=== PATIENT | female | born 1945 | race Caucasian/White ===

== ENCOUNTER 2016-05-24 20:43 | Inpatient (IN) | payer BC, OTHER ==
[~2016-05-24] VITALS: Ht 175.3 cm; Wt 41.5 kg
[2016-05-24] MEDS ORDERED: SODIUM CHLORIDE 0.9% 1000ML 1,000 ML IV STA ×2 (21:34→21:35)
[2016-05-24] MEDS ORDERED: ONDANSETRON INJ 2 MG/ML 2 ML VIAL IV STA (21:35)
[2016-05-24] MEDS ORDERED: OPTIRAY 320 IV PRN (21:45)
[2016-05-24 22:02] LABS: BASO % 0.1 %; BASO ABS # 0.01 K/uL (0-0.2); COMPLETE YES; EOS % 0.1 %; HEMATOCRIT 48.6 % (37-47); IG% 0.3 %; LYMPH % 11.3 %; MEAN CELL VOLUME 88.4 fL (80-100); MEAN CORPUSCULAR HEMOGLOBIN 30.7 pg (25-34); MEAN CORPUSCULAR HGB CONC 34.8 g/dl (32-36); MEAN PLATELET VOLUME 9.9 fL (7.4-10.4); NEUT % 83.2 %; PLATELET COUNT 224 K/uL (130-400); WHITE BLOOD COUNT 15.08 K/uL (4.8-10.8)
[2016-05-24] MEDS ORDERED: CITA40TA12 PO (22:23)
[2016-05-24] MEDS ORDERED: LORA-741 PO (22:23)
[2016-05-24] MEDS ORDERED: MULT-513 PO (22:24)
[2016-05-24 22:30] LABS: ALT/SGPT 57 U/L (12-78); BLOOD UREA NITROGEN 14 mg/dl (7-18); BUN/CREATININE RATIO 15.4 (10-20); CALCIUM 9.9 mg/dl (8.5-10.1); CARBON DIOXIDE 30 mmol/L (21-32); CHLORIDE 104 mmol/L (98-107); CREATININE 0.92 mg/dl (0.60-1.20); GLUCOSE 126 mg/dl (70-99); POTASSIUM 4.4 mmol/L (3.5-5.1); SODIUM 140 mmol/L (136-145)
[2016-05-24 22:32] LABS: ALKALINE PHOSPHATASE 88 U/L (45-117); AST/SGOT 40 U/L (15-37)
[2016-05-24 22:46] LABS: PROTHROMBIN TIME (PATIENT) 10.5 SECONDS (9.0-12.0)
--- NOTE | 2016-05-24 23:17 | DIAGNOSTIC IMAGING REPORT ---
CT OF THE ABDOMEN AND PELVIS WITH CONTRAST CLINICAL HISTORY: GI bleed. COMPARISON STUDY: None. TECHNIQUE: Following IV administration of 115 mL of Optiray-320, axial images of the abdomen and pelvis were obtained from the lung bases to the proximal femurs. Images were reviewed in the axial, sagittal, and coronal planes. IV contrast was administered without complication. CT DOSE: 239.74 mGy.cm FINDINGS: Visualized portions of the lower chest demonstrate moderate to severe emphysema. Evaluation of the abdomen and pelvis is compromised given a paucity of intra-abdominal fat. No pneumatosis, free air or portal venous gas is present. There is a 2.5 cm right hepatic lobe cyst. Several subcentimeter hepatic lesions are too small to characterize. A 1.7 cm right adrenal nodule is indeterminate. There are calcified granulomas within the spleen. There is a 1.3 cm cyst within the upper pole of the left kidney. Several subcentimeter bilateral renal lesions are too small to characterize. There is no evidence for a bowel obstruction. The appendix is not visualized. The sensitivity for detection of mucosal lesions is significantly diminished given CT technique. There is mild wall thickening of the splenic flexure of the colon as well as possible mild wall thickening of the hepatic flexure. This could be due to underdistention. There is moderate distention of the bladder. There is no lymphadenopathy. There is moderate plaque of the abdominal aorta. The left adrenal gland and pancreas are unremarkable. There is no biliary or pancreatic ductal dilatation. IMPRESSION: 1. Mild wall thickening of portions of the colon, including the splenic flexure. This is probably due to underdistention although a nonspecific colitis could appear similar. Difficult study to interpret due to a paucity of intra-abdominal fat. 2. Significantly decreased sensitivity for the detection of mucosal lesions given CT technique. No bowel obstruction. 3. Indeterminate 1.7 cm right adrenal nodule. 4. Moderate to severe emphysema. Electronically signed by: Frank Walton M.D. 05/24/2016 11:16 PM Dictated Date/Time: 05/24/2016 11:05 PM
--- NOTE | 2016-05-24 23:47 | History and Physical ---
History & Physical Date & Time of Service: May 24, 2016 at 23:47 Chief Complaint: Passing Blood Primary Care Physician: Tyrone Roque M.D. History of Present Illness Source: patient, family This is a 71 y/o F who presents with a 1 day history of diarrhea and BRBPR. She has associated lower abdominal cramps but denies pain with defecation. She says that it started off as loose stools with blood but is currently having bowel movements with just blood about a table spoon each time. This has never happened before. She has no GI history. Does not recall eating any unusual foods/uncooked meats. Denies lightheadedness/dizziness. Denies nausea, vomiting, fevers but does admit to some chills. Denies history of hemorrhoids or diverticulitis. Her son has Ulcerative colitis (had colectomy). No family history of colon cancer No recent travel. Denies recent antibiotic use She has never had a colonoscopy before. In general, she does not follow with a doctor regularly and does not keep up with her health maintenance recommendations. She smokes a 1 ppd for 50 years. Denies alcohol use She also reports that she gets extremely short of breath with minimal activity. This has never been evaluated. She does not use inhalers. Past Medical/Surgical History Surgical Problems: (1) Previous section Status: Resolved Family History Diabetes mellitus FH: cancer Hypertension Social History Smoking Status: Current Every Day Smoker Alcohol Use: none Drug Use: none Marital Status: Housing status: lives with family Occupational Status: retired Allergies Coded Allergies: Sulfa Antibiotics (Verified Allergy, Mild, ITCHING, 05/24/16) Home Medications Scheduled Citalopram Hydrobromide (Celexa), 40 MG PO DAILY Lorazepam (Ativan), 0.5 MG PO HS Multivitamins/Minerals (Mvi With Minerals), 1 TAB PO DAILY Pantoprazole (Protonix), 40 MG PO BID Review of Systems Constitutional: + chills, No fatigue, No fever, No sweats, No weakness, No weight loss Respiratory: + dyspnea at rest, + dyspnea on exertion Cardiovascular: No chest pain Abdomen: + diarrhea, + pain, No nausea, No vomiting Genitourinary - Female: No dysuria, No urinary frequency, No urinary incontinence, No urinary urgency Physical Exam Vital Signs Date Time Temp Pulse Resp B/P Pulse Ox O2 Delivery O2 Flow Rate FiO2 05/24/16 21:53 90 05/24/16 21:50 Room Air 05/24/16 21:02 36.7 117 20 160/90 91 Room Air General Appearance: no apparent distress Head: normocephalic, atraumatic Eyes: PERRL, EOMI ENT: hearing grossly normal Neck: supple, no adenopathy, no JVD Respiratory/Chest: no respiratory distress, no accessory muscle use, + decreased breath sounds, + rhonchi, + wheezing Cardiovascular: regular rate, rhythm, no edema Abdomen/GI: normal bowel sounds, non tender, soft Back: no CVA tenderness Extremities/Musculoskelatal: no calf tenderness, normal capillary refill, + pedal edema (trace) Neurologic/Psych: 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, no motor/sensory deficits, alert, normal mood/affect, oriented x 3 Diagnostics Laboratory Results Results Past 24 Hours Test 05/24/16 21:51 05/24/16 22:30 Range/Units White Blood Count 15.08 4.8-10.8 K/uL Red Blood Count 5.50 4.2-5.4 M/uL Hemoglobin 16.9 12.0-16.0 g/dL Hematocrit 48.6 37-47 % Mean Corpuscular Volume 88.4 80-100 fL Mean Corpuscular Hemoglobin 30.7 25-34 pg Mean Corpuscular Hemoglobin Concent 34.8 32-36 g/dl Platelet Count 224 130-400 K/uL Mean Platelet Volume 9.9 7.4-10.4 fL Neutrophils (%) (Auto) 83.2 % Lymphocytes (%) (Auto) 11.3 % Monocytes (%) (Auto) 5.0 % Eosinophils (%) (Auto) 0.1 % Basophils (%) (Auto) 0.1 % Neutrophils # (Auto) 12.54 1.4-6.5 K/uL Lymphocytes # (Auto) 1.70 1.2-3.4 K/uL Monocytes # (Auto) 0.76 0.11-0.59 K/uL Eosinophils # (Auto) 0.02 0-0.5 K/uL Basophils # (Auto) 0.01 0-0.2 K/uL RDW Standard Deviation 40.1 36.4-46.3 fL RDW Coefficient of Variation 12.6 11.5-14.5 % Immature Granulocyte % (Auto) 0.3 % Immature Granulocyte # (Auto) 0.05 0.00-0.02 K/uL Sodium Level 140 136-145 mmol/L Potassium Level 4.4 3.5-5.1 mmol/L Chloride Level 104 98-107 mmol/L Carbon Dioxide Level 30 21-32 mmol/L Anion Gap 6.0 3-11 mmol/L Blood Urea Nitrogen 14 7-18 mg/dl Creatinine 0.92 0.60-1.20 mg/dl Est Creatinine Clear Calc Drug Dose 36.2 ml/min Estimated GFR () 72.1 Estimated GFR (Non- 62.2 BUN/Creatinine Ratio 15.4 10-20 Random Glucose 126 70-99 mg/dl Calcium Level 9.9 8.5-10.1 mg/dl Total Bilirubin 0.4 0.2-1 mg/dl Direct Bilirubin < 0.1 0-0.2 mg/dl Aspartate Amino Transf (AST/SGOT) 40 15-37 U/L Alanine Aminotransferase (ALT/SGPT) 57 12-78 U/L Alkaline Phosphatase 88 45-117 U/L Total Protein 7.2 6.4-8.2 gm/dl Albumin 3.9 3.4-5.0 gm/dl Lipase 80 73-393 U/L Prothrombin Time 10.5 9.0-12.0 SECONDS Prothromb Time International Ratio 1.0 0.9-1.1 Activated Partial Thromboplast Time 26.9 21.0-31.0 SECONDS Partial Thromboplastin Ratio 1.0 Impression Assessment and Plan This is a 71 y/o F with new onset diarrhea and BRBPR. Hematochezia (hemorrhoids vs. bleeding diverticula vs. gastroenteritis vs. IBD vs. malignancy etc) - Patient ultimately needs a colonoscopy - Will consult GI - recommend doing this in the hospital as patient is not likely to follow up outpatient - stool cultures/cdiff. pending. - NPO after midnight - CT abdomen with following incidental findings: 2.5 cm Right hepatic Cyst 1.7 cm right adrenal nodule 1.3 cm left kidny cyst Non sepcific colitis severe emphysema - Does have some leucocytosis- need to rule out E.Coli 157 prior to doing any antibiotics to avoid risk of HUS - trend H/H Long standing Shortness of breath/ Undiagnosed Emphysema Noted On CT but every obvious given her history will trial Duonebs to see if she has any symptomatic relief Upon discharge will need PFT's and inhalers to use at home. Also may benefit from a cardiac Workup-/ stress test- Could be done outpatient since this is not patients presenting complaint, however, given patient's non- compliance, may benefit from in hospital EKG Incidental finding of right adrenal nodule and other cysts - Concern about adrenal adenoma - wanted to do an MRI but patient is claustrophic- could do outpatient open MRI Depression/Anxiety: Celexa, Ativan DVT proph SCDS hold chemical prophylaxis Code: Patient is somewhat uncertain but DOES NOT WANT CPR OR CARDIOVERSION. But is okay to have Mechanical ventilation if respiratory distress. 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 VTE Prophylaxis Given or contraindicated: Other Anticoagulation, SCD's Assessment and Plan Attending Addendum: I have physically seen and examined this patient, have directed their medical care, have supervised the medical residents activities, and agree with the H&P as noted above, with the following changes: The patient is awake, well-developed and adequately nourished, alert and oriented 3, normocephalic and atraumatic, lying in bed and in no acute distress. HEENT--PERRL, EOMI, mucous membranes and oropharynx dry. Neck--supple, no JVD or bruits, thyroid normal, trachea midline, no adenopathy. Heart--normal S1 and S2, no extra beats, no murmurs, rubs or gallops. Lungs--rhonchi and wheezes bilaterally with decreased breath sounds throughout, no respiratory distress, no accessory muscle use. Abdomen--normal bowel sounds and soft, nontender and nondistended, no hernias or masses, no organomegaly. Extremities--no cyanosis, clubbing. Trace bilateral pedal Edema. There are good distal pulses b/l. Dermatologic--normal skin turgor, normal color, warm and dry, no abnormal lymph nodes, no rash. Neurologic--cranial nerves II through XII grossly intact, motor and sensory examination normal. Rheumatologic--normal range of motion, nontender, muscles and joints. Psychiatric--normal affect. Next Assessment and Plan: Hematochezia/nonspecific colitis--the patient be admitted to the medical floor for further assessment. We'll keep nothing by mouth after midnight and place on IV fluids. Consult gastroenterology for possible colonoscopy. No antibiotics until GI studies return. Stool culture, O&P and C. difficile studies pending. Pulmonary/history of shortness of breath/emphysema on imaging studies--we'll do a trial duonebs while in hospital and then use some inhalers at home. 1.7 cm right adrenal nodule--we'll need additional studies. Patient unable to tolerate closed MRI unit. Would look in to getting an MRI in the outpatient setting. Needs follow-up performed. Renal cysts--likely benign, but can be followed up with ultrasound in 6 months. Anxiety/depression--continue Celexa and Ativan.
--- NOTE | 2016-05-24 23:54 | EMERGENCY ROOM VISIT NOTE ---
History Report prepared by Victor M: Noel Bhardwaj Under the Supervision of: Dr. Kalin Gonzalez D.O. First contact with patient: 21:25 Chief Complaint: RECTAL BLEEDING Stated Complaint: PASSING BLOOD Nursing Triage Summary: Pt complains of abdominal pain, diarrhea and bloody stools. It started at 8pm. History of Present Illness The patient is a 71 year old female who presents to the Emergency Room with complaints of acute rectal bleeding that started at 1600 today. The patient notes bright-red blood. She was having diarrhea all day today and lost count of the episodes. She also notes cramping abdominal pain today that is relieved after diarrhea. The patient has not had any recent colonoscopies. She denies any recent travel out of the country, unusual foods, or sick contacts. The patient is not on any blood thinners. Patient denies headache, change in vision , new dizziness or lightheadedness, fevers, chest pain, shortness of breath, nausea, vomiting, pain with urination, and melena. Source of History: patient Onset: 1600 today Position: other (rectal) Quality: other (bright red blood) Timing: other (acute) Associated Symptoms: + abdominal pain, + diarrhea, No SOB, No chest pain, No fevers, No headache, No melena, No nausea, No urinary symptoms, No vomiting Review of Systems See HPI for pertinent positives & negatives. A total of 10 systems reviewed and were otherwise negative. Past Medical & Surgical Surgical Problems: (1) Previous section Family History Diabetes mellitus FH: cancer Hypertension Social History Smoking Status: Current Every Day Smoker Marital Status: Housing Status: lives with family Current/Historical Medications Scheduled Citalopram Hydrobromide (Celexa), 40 MG PO DAILY Lorazepam (Ativan), 0.5 MG PO HS Multivitamins/Minerals (Mvi With Minerals), 1 TAB PO DAILY Allergies Coded Allergies: Sulfa Antibiotics (Verified Allergy, Mild, ITCHING, 05/24/16) Physical Exam Vital Signs Date Time Temp Pulse Resp B/P Pulse Ox O2 Delivery O2 Flow Rate FiO2 05/24/16 21:53 90 05/24/16 21:50 Room Air 05/24/16 21:02 36.7 117 20 160/90 91 Room Air Physical Exam GENERAL: Chronically ill appearing, cachectic, no acute distress. EYE EXAM: normal conjunctiva. OROPHARYNX: no exudate, no erythema, lips, buccal mucosa, and tongue normal and mucous membranes are moist NECK: supple, no nuchal rigidity, no adenopathy, non-tender LUNGS: Clear to auscultation. Normal chest wall mechanics HEART: no murmurs, S1 normal and S2 normal ABDOMEN: abdomen soft, non-tender, normo-active bowel sounds, no masses, no rebound or guarding. BACK: Back is symmetrical on inspection and there is no deformity, no midline tenderness, no CVA tenderness. SKIN: no rashes and no bruising UPPER EXTREMITIES: upper extremities are grossly normal. LOWER EXTREMITIES: No pitting edema. NEURO EXAM: Normal sensorium, cranial nerves II-XII grossly intact, normal speech, no gross weakness of arms, no gross weakness of legs. Gross sensation intact. RECTAL: No stool, scant heme positive. Medical Decision & Procedures ER Provider Diagnostic Interpretation: CT:Per my review, radiologist interpretation. CT OF THE ABDOMEN AND PELVIS WITH CONTRAST CLINICAL HISTORY: GI bleed. COMPARISON STUDY: None. TECHNIQUE: Following IV administration of 115 mL of Optiray-320, axial images of the abdomen and pelvis were obtained from the lung bases to the proximal femurs. Images were reviewed in the axial, sagittal, and coronal planes. IV contrast was administered without complication. CT DOSE: 239.74 mGy.cm FINDINGS: Visualized portions of the lower chest demonstrate moderate to severe emphysema. Evaluation of the abdomen and pelvis is compromised given a paucity of intra-abdominal fat. No pneumatosis, free air or portal venous gas is present. There is a 2.5 cm right hepatic lobe cyst. Several subcentimeter hepatic lesions are too small to characterize. A 1.7 cm right adrenal nodule is indeterminate. There are calcified granulomas within the spleen. There is a 1.3 cm cyst within the upper pole of the left kidney. Several subcentimeter bilateral renal lesions are too small to characterize. There is no evidence for a bowel obstruction. The appendix is not visualized. The sensitivity for detection of mucosal lesions is significantly diminished given CT technique. There is mild wall thickening of the splenic flexure of the colon as well as possible mild wall thickening of the hepatic flexure. This could be due to underdistention. There is moderate distention of the bladder. There is no lymphadenopathy. There is moderate plaque of the abdominal aorta. The left adrenal gland and pancreas are unremarkable. There is no biliary or pancreatic ductal dilatation. IMPRESSION: 1. Mild wall thickening of portions of the colon, including the splenic flexure. This is probably due to underdistention although a nonspecific colitis could appear similar. Difficult study to interpret due to a paucity of intra-abdominal fat. 2. Significantly decreased sensitivity for the detection of mucosal lesions given CT technique. No bowel obstruction. 3. Indeterminate 1.7 cm right adrenal nodule. 4. Moderate to severe emphysema. Electronically signed by: Frank Walton M.D. 05/24/2016 11:16 PM Dictated Date/Time: 05/24/2016 11:05 PM Laboratory Results 05/24/16 21:51 Red Blood Count 5.50, Mean Corpuscular Volume 88.4, Mean Corpuscular Hemoglobin 30.7, Mean Corpuscular Hemoglobin Concent 34.8, Mean Platelet Volume 9.9, Neutrophils (%) (Auto) 83.2, Lymphocytes (%) (Auto) 11.3, Monocytes (%) (Auto) 5.0, Eosinophils (%) (Auto) 0.1, Basophils (%) (Auto) 0.1, Neutrophils # (Auto) 12.54, Lymphocytes # (Auto) 1.70, Monocytes # (Auto) 0.76, Eosinophils # (Auto) 0.02, Basophils # (Auto) 0.01 05/24/16 21:51 Test 05/24/16 21:51 05/24/16 22:30 White Blood Count 15.08 K/uL (4.8-10.8) Red Blood Count 5.50 M/uL (4.2-5.4) Hemoglobin 16.9 g/dL (12.0-16.0) Hematocrit 48.6 % (37-47) Mean Corpuscular Volume 88.4 fL (80-100) Mean Corpuscular Hemoglobin 30.7 pg (25-34) Mean Corpuscular Hemoglobin Concent 34.8 g/dl (32-36) Platelet Count 224 K/uL (130-400) Mean Platelet Volume 9.9 fL (7.4-10.4) Neutrophils (%) (Auto) 83.2 % Lymphocytes (%) (Auto) 11.3 % Monocytes (%) (Auto) 5.0 % Eosinophils (%) (Auto) 0.1 % Basophils (%) (Auto) 0.1 % Neutrophils # (Auto) 12.54 K/uL (1.4-6.5) Lymphocytes # (Auto) 1.70 K/uL (1.2-3.4) Monocytes # (Auto) 0.76 K/uL (0.11-0.59) Eosinophils # (Auto) 0.02 K/uL (0-0.5) Basophils # (Auto) 0.01 K/uL (0-0.2) RDW Standard Deviation 40.1 fL (36.4-46.3) RDW Coefficient of Variation 12.6 % (11.5-14.5) Immature Granulocyte % (Auto) 0.3 % Immature Granulocyte # (Auto) 0.05 K/uL (0.00-0.02) Anion Gap 6.0 mmol/L (3-11) Est Creatinine Clear Calc Drug Dose 36.2 ml/min Estimated GFR () 72.1 Estimated GFR (Non- 62.2 BUN/Creatinine Ratio 15.4 (10-20) Calcium Level 9.9 mg/dl (8.5-10.1) Total Bilirubin 0.4 mg/dl (0.2-1) Direct Bilirubin < 0.1 mg/dl (0-0.2) Aspartate Amino Transf (AST/SGOT) 40 U/L (15-37) Alanine Aminotransferase (ALT/SGPT) 57 U/L (12-78) Alkaline Phosphatase 88 U/L (45-117) Total Protein 7.2 gm/dl (6.4-8.2) Albumin 3.9 gm/dl (3.4-5.0) Lipase 80 U/L (73-393) Prothrombin Time 10.5 SECONDS (9.0-12.0) Prothromb Time International Ratio 1.0 (0.9-1.1) Activated Partial Thromboplast Time 26.9 SECONDS (21.0-31.0) Partial Thromboplastin Ratio 1.0 Laboratory results per my review. Medications Administered Medications (Trade) Dose Ordered Sig/Anjel Route Start Time Stop Time Status Last Admin Dose Admin Sodium Chloride 1,000 ml @ 999 mls/hr Q1H1M STAT IV 05/24/16 21:34 05/24/16 22:34 DC 05/24/16 21:34 999 MLS/HR Sodium Chloride (Nss 1000ml) 1,000 ml @ 999 mls/hr Q1H1M STAT IV 05/24/16 21:35 05/24/16 22:35 DC 05/24/16 21:35 999 MLS/HR Ondansetron HCl (Zofran Inj) 4 mg NOW STAT IV 05/24/16 21:35 05/24/16 21:36 DC 05/24/16 21:35 4 MG ECG Indication: weakness Rate (beats per minute): 89 Rhythm: sinus rhythm Findings: no ectopy, other (rightward axis) ED Course ED COURSE: Vital signs were reviewed and showed tachycardia and hypertension. The patients medical record was reviewed The above diagnostic studies were performed and reviewed. ED treatments and interventions as stated above. 8: The patient was evaluated in room A12a. A complete history and physical examination was performed. 2134: NSS 1000 ml @ 999 mls/hr. 2135: Zofran 4 mg IV, NSS 1000 ml @ 999 mls/hr. 2310: Discussed the case with Dr. Machado, [facility]. The patient will be evaluated. 2315: Upon reevaluation, the patient is doing well.I discussed my findings with the patient and she understands and agrees with the treatment plan. Based on the patients age, coexisting illnesses, exam and lab findings the decision to treat as an inpatient was made. The patient remained stable while under my care. The patient will be evaluated for further management. Medical Decision Differential diagnosis includes etiologies such as diverticulosis, AVM, coagulopathy, colitis, inflammatory bowel disease, malignancy, Rita-Larson tear, esophagitis, peptic ulcer disease, variceal bleed, gastritis, epistaxis, fissure, hemorrhoids, as well as others were entertained. Patient is a 69-year-old female who presents the ER for persistent diarrhea today. She notes that at 4 PM she has been having persistent blood per rectum without stool. Denies any dark tarry stools. No previous colonoscopies. Labs are remarkable for a leukocytosis 15,000. She has no belly pain with exception of mild cramping prior to diarrhea. Hemoglobin is 16. BMP is unremarkable. BUN does not suggest an upper GI bleed. Direct bili along with LFTs and lipase is unremarkable. INR was unremarkable. No blood thinners. CT of her abdomen pelvis shows no obvious acute pathology. She rested comfortably in the ER. She was given fluids and was admitted to internal medicine with a GI bleed. Rectal with scant heme positive but nursing notes that she did have a large bowel movement of blood. Consults Time Called: [id number] Consulting Physician: Dr. Machado, [facility] Hospitalist Returned Call: [phone]: Discussed the case with Dr. Machado, [facility]. The patient will be evaluated. Impression Primary Impression: GI bleed Scribe Attestation The scribe's documentation has been prepared under my direction and personally reviewed by me in its entirety. I confirm that the note above accurately reflects all work, treatment, procedures, and medical decision making performed by me. Departure Information Dispostion Being Evaluated By Hospitalist Patient Instructions My [facility] Health Problem Qualifiers Primary Impression: GI bleed GI bleed type/associated pathology: unspecified gastrointestinal hemorrhage type Qualified Codes: K92.2 - Gastrointestinal hemorrhage, unspecified
[2016-05-25] VITALS (8 sets, daily range): BP systolic 132–154; BP diastolic 68–81; PULSE 83–91; TEMP 36.7; O2SAT 89–91; Ht 175.3 cm; Wt 41.5 kg
[2016-05-25] MEDS ORDERED: ACETAMINOPHEN 325 MG TAB PO PRN (00:30)
[2016-05-25] MEDS ORDERED: MAGNESIUM HYDROXIDE SUSP 30 ML UDC PO PRN (00:30)
[2016-05-25] MEDS ORDERED: ONDANSETRON INJ 2 MG/ML 2 ML VIAL IV PRN (00:30)
[2016-05-25] MEDS ORDERED: ALUMINUM/MAGNESIUM/SIMETH (MAALOX MAX) 30 ML UDC PO PRN (00:30)
[2016-05-25] MEDS ORDERED: POLYETHYLENE (MIRALAX) 17 GM PACK PO PRN (00:30)
[2016-05-25 05:39] LABS: URINE APPEARANCE CLEAR (CLEAR); URINE BILIRUBIN NEG (NEG); URINE COLOR YELLOW; URINE NITRITE NEG (NEG); URINE PH 7.5 (4.5-7.5); URINE SPECIFIC GRAVITY 1.009 (1.000-1.030); UROBILINOGEN NEG (NEG)
[2016-05-25 06:08] LABS: MANUAL MICROSCOPIC REQUIRED? NO; REVIEW REQ? NO
[2016-05-25 06:52] LABS: HEMATOCRIT 43.3 % (37-47)
[2016-05-25] MEDS: ALBUT/IPRATROP 3MG/0.5MG NEB 3 ML VIAL INH SCH ×2 (07:37→11:34)
[2016-05-25] MEDS ORDERED: CITALOPRAM 40 MG TAB PO SCH (09:00)
[2016-05-25 10:41] LABS: HEMATOCRIT 43.4 % (37-47)
[2016-05-25] MEDS ORDERED: NURSING VERBAL MED ORDER ONE (12:30)
[2016-05-25] MEDS ORDERED: NICOTINE 21 MG/24 HR TDSY EXT SCH (13:00)
[2016-05-25] MEDS ORDERED: PANT40TA PO (13:01)
--- NOTE | 2016-05-25 13:03 | Discharge Instructions ---
Discharge Instructions Date of Service May 25, 2016. Admission Reason for Admission: Gi Bleed Discharge Discharge Diagnosis / Problem: lower gi bleed Discharge Goals Goal(s): Decrease discomfort, Improve function, Increase independence, Improve disease control, Learn about illness, Diagnostic testing, Prevent Disease Progression Activity Recommendations Activity Limitations: resume your previous activity Driving or Machine Use: no limitations . Instructions / Follow-Up Instructions / Follow-Up Patient to be discharged home Please take new medications protonix twice a day Will set up appointment with Dr Siddiqi for colonoscopy as outpatient, patient agreeable If worsening abdominal pain, fevers, chills, blood in stools please report to ER Current Hospital Diet Patient's current hospital diet: Clear Liquid Diet Discharge Diet Recommended Diet: Regular Diet Pending Studies Studies pending at discharge: no Medical Emergencies . Who to Call and When: Medical Emergencies: If at any time you feel your situation is an emergency, please call 911 immediately. . Non-Emergent Contact Non-Emergency issues call your: Primary Care Provider Call Non-Emergent contact if: you have a fever, your pain is worsening . . "Provider Documentation" section prepared by Alfred Mejia. VTE Core Measure Inpt VTE Proph given/why not?: Other Anticoagulation, SCD's
--- NOTE | 2016-05-25 13:42 | GASTROINTESTINAL CONSULTATION ---
DATE OF CONSULTATION: 05/25/2016 REASON FOR EVALUATION: Rectal bleeding. HISTORY OF PRESENT ILLNESS: The patient is a 71-year-old female Lita, who presented to the hospital with rectal bleeding. The patient states that yesterday, she had several episodes of diarrhea followed by 5 episodes of bright red blood per rectum. This began around 04:00 yesterday afternoon and went to about 10:00 last night. She has had no further bleeding since then. With each episode, she had passed about a tablespoon of bright red blood. She did have some crampy abdominal pain when she was having diarrhea, but when she was passing the blood, she did not have any abdominal pain or perianal pain. She denies any fever. No nausea or vomiting. She has had no prior episodes of rectal bleeding. The patient denies ever having had a colonoscopy. PAST MEDICAL HISTORY: Remarkable for emphysema from cigarette smoking. She had a . She has depression. MEDICATIONS: Multiple vitamin, Ativan and Celexa. ALLERGIES: SULFA. FAMILY HISTORY: Positive for cancer, diabetes, and hypertension. SOCIAL HISTORY: The patient is . She lives at home. She is retired. She smokes daily for many years. REVIEW OF SYSTEMS: Positive for some dyspnea at rest and weakness. LABORATORY DATA: Shows a white count of 15, hemoglobin 16.9, and platelets 224. Liver profile, renal profile, amylase and lipase normal. PHYSICAL EXAMINATION: GENERAL: The patient is thin, in no acute distress. VITAL SIGNS: Show blood pressure 160/90 and pulse 90. ABDOMEN: Shows low midline scar. Bowel sounds are normal. There is no masses, tenderness, or hepatosplenomegaly. LUNGS: Exam shows decreased breath sounds. IMPRESSION: The patient has rectal bleeding with small amounts of bright red blood following an episode of diarrhea. Stool for C. diff so far is negative. Bacterial pathogens are pending. I also ordered a fecal leukocyte test. I recommend that the patient undergo colonoscopy. I strongly encouraged the patient to stay in the hospital over the weekend, so we can prep her to do a colonoscopy on Saturday. I suspect that the patient may just have some internal hemorrhoids, which were exacerbated by a bout of diarrhea, which may have been viral or bacterial in etiology. Regardless, she needs a colonoscopy. The patient is somewhat reluctant to stay in the hospital, but I tried to convince her that it was in her best interest. Hopefully, she will stay and get prepped and we can proceed with colonoscopy on Saturday.
--- NOTE | 2016-05-25 14:11 | Discharge Summary ---
Discharge Summary Date of Service May 25, 2016. Discharge Summary Admission Date: May 25, 2016 at 00:31 Discharge Date: May 25, 2016 Discharge Disposition: Home Principal Diagnosis: GI bleed Consultations: GI Medication Reconciliation New Medications: Pantoprazole (Protonix) 40 Mg Tab 40 MG PO BID, #30 TAB Continued Medications: Citalopram Hydrobromide (Celexa) 40 Mg Tab 40 MG PO DAILY, TAB Lorazepam (Ativan) 0.5 Mg Tab 0.5 MG PO HS, TAB Multivitamins/Minerals (Mvi With Minerals) Tab 1 TAB PO DAILY, TAB Discharge Exam Review of Systems: Constitutional: No chills, No fever Respiratory: No cough, No dyspnea on exertion, No shortness of breath, No sputum Cardiovascular: No chest pain, No orthopnea Abdomen: No GI bleeding, No diarrhea, No nausea, No pain, No vomiting Musculoskeletal: No joint pain, No muscle pain Genitourinary - Female: No dysuria, No urinary frequency, No urinary urgency Neurologic: No numbness/tingling, No paralysis, No weakness Physical Exam: General Appearance: WD/WN, no apparent distress Neck: supple, no adenopathy Respiratory/Chest: lungs clear, normal breath sounds Cardiovascular: no edema, no gallop Abdomen / GI: non tender, soft Neurologic/Psychiatric: alert, oriented x 3 Hospital Course This is a 71 y/o F with new onset diarrhea and BRBPR. Hematochezia (hemorrhoids vs. bleeding diverticula vs. gastroenteritis vs. IBD vs. malignancy etc) - Patient ultimately needs a colonoscopy however pt refused to do as inpt, hg remained stable and no further bleeding noted during hospitalization - GI consulted however colonoscopy deferred as stated above - stool cultures pending, cdiff. neg - CT abdomen with following incidental findings: 2.5 cm Right hepatic Cyst 1.7 cm right adrenal nodule 1.3 cm left kidny cyst Non sepcific colitis severe emphysema - Does have some leucocytosis- need to rule out E.Coli 157 prior to doing any antibiotics to avoid risk of HUS Long standing Shortness of breath/ Undiagnosed Emphysema -Noted On CT -Trial Duonebs to see if she has any symptomatic relief -Upon discharge will need PFT's and inhalers to use at home. -Also may benefit from a cardiac Workup-/ stress test- Could be done outpatient since this is not patients presenting complaint, however, given patient's non- compliance, may benefit from in hospital Incidental finding of right adrenal nodule and other cysts - Concern about adrenal adenoma - Wanted to do an MRI but patient is claustrophic- could do outpatient open MRI Depression/Anxiety: - Rodriguez Jaramillo DVT proph - SCDS Pt is FULL CODE Total Time Spent: Greater than 30 minutes This includes examination of the patient, discharge planning, medication reconciliation, and communication with other providers. Discharge Instructions Please refer to the electronic Patient Visit Report (Discharge Instructions) for additional information. Additional Copies To Tyrone Roque M.D.
[2016-05-25] MEDS ORDERED: LORAZEPAM 0.5 MG TAB PO SCH (21:00)
[2016-05-27] MEDS ORDERED: LAVAGE SOLUTION 4000ML PO SCH (18:00)
[2016-06-07] MEDS ORDERED: MULT-506 PO (11:26)
== END 2016-05-25 14:00 | disposition home or self-care (01) | DRG 392 ==
LOC: ENRESERVDT → ENRESERVTM → C.EDB 20:44 → C.MSW 05-25 00:31
PROVIDERS: ADMIT Student in an Organized Health Care Education/Training Program; ATTEND Hospitalist
DX: K52.9 Noninfective gastroenteritis and colitis, unspecified (principal); K92.1 Melena; F32.9 Major depressive disorder, single episode, unspecified; J43.9 Emphysema, unspecified; F17.210 Nicotine dependence, cigarettes, uncomplicated; F41.9 Anxiety disorder, unspecified; D72.829 Elevated white blood cell count, unspecified; E27.8 Other specified disorders of adrenal gland; N28.1 Cyst of kidney, acquired; Z91.19 Patient's noncompliance with other medical treatment and regimen; Z79.899 Other long term (current) drug therapy

== ENCOUNTER → 2016-10-23 | Outpatient (CLI) | payer OTHER ==
[~2016-10-23] MED LIST: CITA40TA12 PO; LORA-741 PO; MULT-506 PO; PANT40TA PO
[2016-10-23 12:36] LABS: ESTIMATED AVERAGE GLUCOSE 128 mg/dl; HA1C FLAG Normal (Normal)
[2016-10-23 12:56] LABS: CHOLESTEROL/HDL RATIO 3.2; THYROID STIMULATING HORMONE 1.27 uIu/ml (0.300-4.500)
[2016-10-26 11:37] LABS: NORMETANEPHRINE PLASMA 292 pg/mL (<=148); TOTAL METANEPHRINE PLASMA 391 pg/mL (<=205)
--- NOTE | 2016-11-01 08:24 | CODING QUERY MEDICAL NECESSITY ---
CQSUPPORTING DIAGNOSIS NEEDED A supporting diagnosis is required for the test/procedure performed on this patient in order for us to be reimbursed by the patient's insurance. Please provide a supporting diagnosis for the following test/procedure listed below next to the test name along with your signature. *If there is no additional diagnosis for this patient that would support the following test/procedure please document that below next to the test/procedure. Test(s)/Procedure(s) that require a supporting diagnosis: DOS 10/23/16 GLYCATED HEMOGLOBIN TEST VITAMIN D TEST VITAMIN B12 TEST Provider Signature: Date: Thank you Courtney Ray Health Information Management Once completed, please kindly fax back to [phone] For questions please call [phone]
== END | disposition home or self-care (01) ==
LOC: C.LABPBG 08:15
PROVIDERS: ATTEND Internal Medicine Endocrinology, Diabetes & Metabolism
DX: E27.9 Disorder of adrenal gland, unspecified (principal); E46 Unspecified protein-calorie malnutrition; R63.4 Abnormal weight loss; E55.9 Vitamin D deficiency, unspecified; R73.03 Prediabetes

== ENCOUNTER → 2016-11-07 | Outpatient (CLI) | payer OTHER ==
[2016-11-11 11:37] LABS: NORMETANEPHRINE PLASMA 212 pg/mL (<=148); TOTAL METANEPHRINE PLASMA 253 pg/mL (<=205)
== END | disposition home or self-care (01) ==
LOC: C.LABPBG 08:08
PROVIDERS: ATTEND Internal Medicine Endocrinology, Diabetes & Metabolism
DX: E27.9 Disorder of adrenal gland, unspecified (principal); M79.1 Myalgia

== ENCOUNTER → 2016-11-19 | Outpatient (CLI) | payer OTHER ==
[2016-11-19 12:18] LABS: BLOOD UREA NITROGEN 13 mg/dl (7-18); CREATININE 0.85 mg/dl (0.60-1.20)
== END | disposition home or self-care (01) ==
LOC: C.LABPBG 08:16
PROVIDERS: ATTEND Internal Medicine Endocrinology, Diabetes & Metabolism
DX: E27.9 Disorder of adrenal gland, unspecified (principal); R63.4 Abnormal weight loss

== ENCOUNTER → 2016-11-28 | Outpatient (CLI) | payer OTHER ==
[~2016-11-28] MED LIST changes: +GADAVIST IV PRN; -PANT40TA PO
--- NOTE | 2016-11-28 10:58 | DIAGNOSTIC IMAGING REPORT ---
ABDOMEN COMBO CLINICAL HISTORY: 71 years-old Female presenting with E27.9 Adrenal nodulespecial attention to adrenals (with fine cut. TECHNIQUE: Multisequence, multiplanar MR imaging of the abdomen was performed before and after the administration of intravenous contrast. IV contrast: 3.9 mL of Gadavist. COMPARISON: CT from 05/24/2016. FINDINGS: Localizer images: Unremarkable. Lung bases: Lung bases clear. Normal heart size. No pericardial or pleural effusion. Liver: Normal morphology. Hepatic fat fraction measures 0.7%, which is normal. Well-defined lobular T2 hyperintense nonenhancing lesion in the right hepatic lobe, most consistent with a hepatic cyst. Patent hepatic vasculature. Biliary: No intrahepatic or extrahepatic biliary ductal dilatation. Normal gallbladder. Pancreas: Normal. Spleen: Normal. Adrenal glands: The 1.9 cm right adrenal gland nodule (in phase 991, posterior is 252, adrenal signal intensity index 74.6%, indicating a lipid rich adenoma. This demonstrates heterogeneous hypoenhancement. Left adrenal gland normal. Kidneys: Scattered T2 hyperintense nonenhancing lesions consistent with simple cysts. No hydronephrosis. Bowel: Normal. No bowel obstruction. Peritoneal cavity: No free fluid or intraperitoneal gas. Lymph nodes: No enlarged lymph nodes in the abdomen or pelvis. Vasculature: Aorta and IVC patent and normal in caliber. Abdominal wall: Normal. Musculoskeletal: Normal. IMPRESSION: 1. Findings consistent with benign lipid rich adenoma of the right adrenal gland. Electronically signed by: Junito Dwyer M.D. 11/28/2016 10:57 AM Dictated Date/Time: 11/28/2016 10:31 AM
== END | disposition home or self-care (01) ==
LOC: C.MRIBC 07:56
PROVIDERS: ATTEND Internal Medicine Endocrinology, Diabetes & Metabolism
DX: E27.9 Disorder of adrenal gland, unspecified (principal)

== ENCOUNTER → 2017-05-20 | Outpatient (CLI) | payer OTHER ==
[~2017-05-20] MED LIST changes: -GADAVIST IV PRN
--- NOTE | 2017-05-20 12:22 | DIAGNOSTIC IMAGING REPORT ---
TWO VIEW CHEST CLINICAL HISTORY: Cough. FINDINGS: PA and lateral chest radiographs are correlated with abdominal CT dated 05/24/2016. The cardiomediastinal silhouette is unremarkable. There is atherosclerotic calcification of the thoracic aorta. Enlargement of the central pulmonary arteries suggests pulmonary artery hypertension. Advanced emphysema is identified and there is nonspecific interstitial thickening. Patchy airspace consolidation is seen at the left lung base. No large pleural effusion is identified. A 6 mm nodular density projects over the right upper lobe. There is no pneumothorax. The skeletal structures are osteopenic. The bony thorax appears intact. IMPRESSION: 1. Patchy airspace consolidation is seen at the left lung base. The appearance is typical for pneumonia. Radiographic follow-up is recommended. 2. Advanced emphysema. 3. A 6 mm nodular density projects over the right upper lobe. This is nonspecific, and follow-up with a chest CT is recommended for further assessment. Electronically signed by: Jason Garvin M.D. 05/20/2017 12:20 PM Dictated Date/Time: 05/20/2017 12:18 PM
== END | disposition home or self-care (01) ==
LOC: C.RAD1850 11:30
PROVIDERS: ATTEND Family Medicine
DX: R05 Cough (principal)

== ENCOUNTER → 2017-05-20 | Outpatient (CLI) | payer OTHER | END | disposition home or self-care (01) | LOC: C.LABSPEC 15:36 | PROVIDERS: ATTEND Family Medicine | DX: R39.9 Unspecified symptoms and signs involving the genitourinary system (principal); R05 Cough ==

== ENCOUNTER → 2017-05-24 | Outpatient (CLI) | payer OTHER ==
[2017-05-24 14:25] LABS: BASO % 0.1 %; BASO ABS # 0.02 K/uL (0-0.2); EOS % 0.4 %; EOS ABS # 0.08 K/uL (0-0.5); HEMATOCRIT 47.2 % (37-47); HEMOGLOBIN 15.9 g/dL (12.0-16.0); IG# 0.28 K/uL (0.00-0.02); LYMPH % 14.6 %; LYMPH ABS # 2.88 K/uL (1.2-3.4); MEAN CELL VOLUME 91.5 fL (80-100); MEAN CORPUSCULAR HEMOGLOBIN 30.8 pg (25-34); MEAN CORPUSCULAR HGB CONC 33.7 g/dl (32-36); MEAN PLATELET VOLUME 9.4 fL (7.4-10.4); MONO % 8.5 %; MONO ABS # 1.68 K/uL (0.11-0.59); PLATELET COUNT 441 K/uL (130-400); RED CELL DISTRIBUTION WIDTH SD 43.2 fL (36.4-46.3); WHITE BLOOD COUNT 19.74 K/uL (4.8-10.8)
[2017-05-24 14:57] LABS: ALBUMIN 3.4 gm/dl (3.4-5.0); ALT/SGPT 46 U/L (12-78); AST/SGOT 31 U/L (15-37); BLOOD UREA NITROGEN 15 mg/dl (7-18); CALCIUM 10.4 mg/dl (8.5-10.1); CARBON DIOXIDE 29 mmol/L (21-32); CREATININE 0.84 mg/dl (0.60-1.20); GLUCOSE 86 mg/dl (70-99); POTASSIUM 3.7 mmol/L (3.5-5.1); SODIUM 139 mmol/L (136-145)
[2017-05-24 15:08] LABS: ALKALINE PHOSPHATASE 90 U/L (45-117); TOTAL PROTEIN 7.6 gm/dl (6.4-8.2)
[2017-05-25 07:01] LABS: HEMOGLOBIN A1C 6.2 % (4.5-5.6)
== END | disposition home or self-care (01) ==
LOC: C.LABPBG 08:10
PROVIDERS: ATTEND Family Medicine
DX: R06.02 Shortness of breath (principal); R53.83 Other fatigue; R73.03 Prediabetes

== ENCOUNTER → 2017-06-07 | Outpatient (CLI) | payer OTHER ==
--- NOTE | 2017-06-07 11:23 | DIAGNOSTIC IMAGING REPORT ---
CHEST 2 VIEWS ROUTINE CLINICAL HISTORY: Pneumonia. COMPARISON STUDY: Chest radiograph May 20, 2017. FINDINGS: Severe emphysema is noted with lung hyperinflation. Nipple shadows project over the lungs. Cardiac size is normal. Mediastinal contours are normal. Left basilar opacity has improved since exam of May 20, 2017. A possible 6 mm right upper lobe nodule is again noted. IMPRESSION: 1. Significant improvement in left basilar opacity which suggests a resolving pneumonia. 2. Redemonstration of a possible 6 mm right upper lobe nodule. A follow-up nonemergent chest CT is recommended. 3. Severe emphysema. Electronically signed by: Frank Walton M.D. 06/07/2017 11:21 AM Dictated Date/Time: 06/07/2017 11:19 AM
== END | disposition home or self-care (01) ==
LOC: C.RAD1850 11:09
PROVIDERS: ATTEND Family Medicine
DX: J18.9 Pneumonia, unspecified organism (principal); J43.9 Emphysema, unspecified

== ENCOUNTER 2017-09-27 14:41 | Emergency (ER) | payer OTHER ==
[~2017-09-27] VITALS: Ht 175.3 cm; Wt 42.0 kg
[~2017-09-27 14:41] MED LIST changes: +AZIT250T PO; -CITA40TA12 PO; +OXGN; +RRALBUT083 INH; +UMEC1AER INH
[2017-09-27 14:46] VITALS: TEMP 36.9; Ht 175.3 cm; Wt 42.0 kg
[2017-09-27 14:55] VITALS: O2SAT 95
[2017-09-27] MEDS ORDERED: METHYLPREDNISOLONE 125 MG VIAL IV STA (15:10)
[2017-09-27] MEDS ORDERED: IPRATROPIUM BROMIDE NEB SOLN 0.02% 2.5 ML VIAL INH ONE (15:15)
[2017-09-27] MEDS ORDERED: LEVALBUTEROL 1.25MG/0.5ML NEB INH ONE (15:15)
--- NOTE | 2017-09-27 15:19 | EMERGENCY ROOM VISIT NOTE ---
History First contact with patient: 14:58 Chief Complaint: RESPIRATORY DISTRESS Stated Complaint: RESPIRATORY Nursing Triage Summary: Patient relates that she smokes daily. She has a history of chronic bronchitis. In the past three days, she has increased difficulty of breathing. She uses 2lpm nc of oxygen. This AM she woke and related that her saturation was 87-88%. She takes routine nebulizers. She comes to the ED because she feels more fatigued and exhausted. Denies fever. History of Present Illness The patient is a 72 year old female who presents to the Emergency Room with complaints of shortness of breath. She does have history of COPD and is chronically short of breath and wears 2 L oxygen is gotten worse over the last 3 days. She has had a nonproductive cough. Nothing seems to make her better or worse with exception of her albuterol nebs which he takes 4 times a day. She has had no fall or trauma. No chest pain except for left lower rib pain with coughing or breathing. She has had some nausea and weight loss over the last several months unrelated to today. No vomiting or diarrhea. No lower extremity pain or swelling. No blood or melena in her stool. No focal numbness or weakness or headache. She did come in by EMS Source of History: patient, transfer records Review of Systems As above. All other systems reviewed were negative unless otherwise stated in history. At least 10 were reviewed Past Medical/Surgical History Medical Problems: (1) COPD (chronic obstructive pulmonary disease) Surgical Problems: (1) Previous section Old medical records were reviewed. Nurse's notes were reviewed and I agree with. Family History Diabetes mellitus FH: cancer Hypertension Social History Smoking Status: Current Every Day Smoker Drug Use: none Marital Status: Housing Status: lives with family Occupation Status: retired Current/Historical Medications Scheduled Acetaminophen (Tylenol), 500 MG PO PRN Azithromycin (Zithromax Z-Marvin), 0 PO UD Cholecalciferol (Vitamin D), 2,000 UNITS DAILY Citalopram Hydrobromide (Celexa), 40 MG PO QAM Home O2 Therapy (Oxygen), 2 LITER NA CONTINOUS Lorazepam (Ativan), 0.5 MG PO QAM Multivitamin (Multivitamin), 1 TAB PO QAM Prednisone (Prednisone), 50 MG PO DAILY Umeclidinium-Vilanterol (Anoro Ellipta 62.5-25 Mcg/INH), 1 DOSE INH DAILY Scheduled PRN Albuterol Sulf (Albuterol Sulfate), 1 DOSE INH Q4-6 PRN for SOB/Wheezing Physical Exam Vital Signs Date Time Temp Pulse Resp B/P (MAP) Pulse Ox O2 Delivery O2 Flow Rate FiO2 09/27/17 17:30 107 22 125/71 92 Nasal Cannula 2.0 09/27/17 17:10 105 16 139/74 93 Nasal Cannula 2.0 09/27/17 16:38 110 16 161/92 96 Nasal Cannula 2.0 09/27/17 15:50 92 19 139/87 100 Nebulizer 09/27/17 15:43 100 20 95 Nasal Cannula 2.0 09/27/17 15:18 93 09/27/17 15:00 93 21 161/90 95 Nasal Cannula 2.0 09/27/17 14:59 95 Nasal Cannula 2.0 09/27/17 14:55 95 Nasal Cannula 2.0 09/27/17 14:46 95 Nasal Cannula 2.0 09/27/17 14:46 36.9 95 20 172/84 95 Nasal Cannula 2.0 09/27/17 14:46 95 Nasal Cannula 4.0 Physical Exam General: Well developed well nourished tonically ill-appearing older female who is wearing supplemental oxygen set at 2 L nasal cannula but appears in no acute distress, breathing comfortably on room air. Normal speech HEENT: Normal cephalic atraumatic. Pupils are equal round and reactive to light. Extraocular movements are intact. Oropharynx is pink with moist mucous membranes. No swelling of the mouth lips or tongue. Neck: Supple with a midline trachea. No meningeal signs or stiffness, no JVD or bruits. No Stridor. Chest: Clear to auscultation bilaterally. Her lung sounds are diminished bilaterally but no wheezes or rhonchi. No increased work of breathing. Heart: Regular rate and rhythm without murmurs or gallops. Abdomen: Soft nontender, nondistended without rebound guarding or rigidity. Extremities: No cyanosis clubbing or edema. No calf tenderness or assymetry Spine/Back. Non tender to palpation. No CVA tenderness Skin: Good turgor without rashes. Neurologic exam: Cranial nerves two through 12 are intact. Motor and sensation are intact and symmetrical throughout. Medical Decision & Procedures Laboratory Results 09/27/17 14:13 Red Blood Count 5.00, Mean Corpuscular Volume 92.2, Mean Corpuscular Hemoglobin 31.0, Mean Corpuscular Hemoglobin Concent 33.6, Mean Platelet Volume 11.1, Neutrophils (%) (Auto) 69.0, Lymphocytes (%) (Auto) 17.0, Monocytes (%) (Auto) 11.8, Eosinophils (%) (Auto) 1.7, Basophils (%) (Auto) 0.2, Neutrophils # (Auto ) 8.22, Lymphocytes # (Auto) 2.02, Monocytes # (Auto) 1.41, Eosinophils # (Auto ) 0.20, Basophils # (Auto) 0.02 09/27/17 14:13 Test 09/27/17 14:13 09/27/17 15:18 09/27/17 16:57 White Blood Count 11.90 K/uL (4.8-10.8) Red Blood Count 5.00 M/uL (4.2-5.4) Hemoglobin 15.5 g/dL (12.0-16.0) Hematocrit 46.1 % (37-47) Mean Corpuscular Volume 92.2 fL (80-100) Mean Corpuscular Hemoglobin 31.0 pg (25-34) Mean Corpuscular Hemoglobin Concent 33.6 g/dl (32-36) Platelet Count 197 K/uL (130-400) Mean Platelet Volume 11.1 fL (7.4-10.4) Neutrophils (%) (Auto) 69.0 % Lymphocytes (%) (Auto) 17.0 % Monocytes (%) (Auto) 11.8 % Eosinophils (%) (Auto) 1.7 % Basophils (%) (Auto) 0.2 % Neutrophils # (Auto) 8.22 K/uL (1.4-6.5) Lymphocytes # (Auto) 2.02 K/uL (1.2-3.4) Monocytes # (Auto) 1.41 K/uL (0.11-0.59) Eosinophils # (Auto) 0.20 K/uL (0-0.5) Basophils # (Auto) 0.02 K/uL (0-0.2) RDW Standard Deviation 42.5 fL (36.4-46.3) RDW Coefficient of Variation 12.7 % (11.5-14.5) Immature Granulocyte % (Auto) 0.3 % Immature Granulocyte # (Auto) 0.03 K/uL (0.00-0.02) Anion Gap 2.0 mmol/L (3-11) Est Creatinine Clear Calc Drug Dose 40.5 ml/min Estimated GFR () 82.3 Estimated GFR (Non- 71.0 BUN/Creatinine Ratio 14.1 (10-20) Calcium Level 10.1 mg/dl (8.5-10.1) Total Bilirubin 0.4 mg/dl (0.2-1) Direct Bilirubin 0.1 mg/dl (0-0.2) Aspartate Amino Transf (AST/SGOT) 19 U/L (15-37) Alanine Aminotransferase (ALT/SGPT) 26 U/L (12-78) Alkaline Phosphatase 78 U/L (45-117) Total Protein 7.0 gm/dl (6.4-8.2) Albumin 3.6 gm/dl (3.4-5.0) Lipase 80 U/L (73-393) Bedside Troponin I 0.030 ng/ml (0-0.045) D-Dimer 230 ug/L FEU (0-500) Medications Administered Medications (Trade) Dose Ordered Sig/Anjel Route Start Time Stop Time Status Last Admin Dose Admin Levalbuterol (Xopenex 1.25MG/ 0.5ML Neb) 5 mg ONE ONCE INH 09/27/17 15:15 09/27/17 15:16 DC 09/27/17 15:42 5 MG Ipratropium Hastings (Atrovent 0.02% 0.5MG/2.5ML Neb) 2 mg ONE ONCE INH 09/27/17 15:15 09/27/17 15:16 DC 09/27/17 15:42 2 MG Methylprednisolone Sodium Succinate (Solu-Medrol IV) 125 mg NOW STAT IV 09/27/17 15:10 09/27/17 15:13 DC 09/27/17 15:40 125 MG ECG Per My Interpretation Indication: SOB/dyspnea Rate (beats per minute): 95 Rhythm: normal sinus Findings: no acute ischemic change Change: no significant change Change: Pulmonary disease pattern. No change compared to 07/26/2017 Medical Decision Differential diagnosis includes: COPD, bronchitis, pneumonia, pneumothorax, cardiac disease, PE, electrolyte or metabolic abnormality, sepsis This patient comes in as described above. She was placed in room B2. She is here for increasing shortness of breath. she does have history of severe COPD and has 2 L oxygen dependent she is not currently on antibiotics or steroids. she does not appear to be in significant distress. Her O2 sat is in the high 90s on her baseline nasal cannula. IV access established was given Solu-Medrol 125 mg IV as well as 1 hour Xopenex/Atrovent neb. EKG and multiple blood testing was obtained. She was reassessed frequently. Chest x-ray shows a possible infiltrates. She has noticing a white count or fever. She is feeling significantly better after the nebs. EKG does not suggest acute coronary syndrome or arrhythmia. She has no significant electrolyte or metabolic abnormalities. She has a normal d-dimer and a low pretest probably setting makes PE highly unlikely. I talked the patient and family about admitted versus going home she strongly desires to go home and does not want to be admitted. I think this is reasonable with close follow-up and will start her on azithromycin first dose was given here as well as prednisone this is helped her before think this is most mostly a COPD exacerbation with perhaps a bronchitis. She was feeling better and was encouraged to follow-up with her doctor Saturday for recheck. Medication Reconcilliation Current Medication List: was personally reviewed by me Blood Pressure Screening Patient's blood pressure: Normal blood pressure Impression Primary Impression: COPD (chronic obstructive pulmonary disease) Additional Impressions: Bronchitis Left sided chest pain Departure Information Prescriptions Prednisone (Prednisone) 50 Mg Tab 50 MG PO DAILY, #4 TAB Prov: Epi Thomas M.D. 09/27/17 Azithromycin (ZITHROMAX Z-MARVIN) 250 Mg Tab 0 PO UD, #1 PKT Prov: Epi Thomas M.D. 09/27/17 Referrals Diandra Grubbs DO (PCP) Patient Instructions Asthma - [facility], COPD - [facility], Croup - [facility], [facility] Health Problem Qualifiers
[2017-09-27 15:29] LABS: BASO % 0.2 %; BASO ABS # 0.02 K/uL (0-0.2); EOS % 1.7 %; HEMATOCRIT 46.1 % (37-47); HEMOGLOBIN 15.5 g/dL (12.0-16.0); IG# 0.03 K/uL (0.00-0.02); LYMPH ABS # 2.02 K/uL (1.2-3.4); MEAN CELL VOLUME 92.2 fL (80-100); MEAN CORPUSCULAR HGB CONC 33.6 g/dl (32-36); MEAN PLATELET VOLUME 11.1 fL (7.4-10.4); MONO % 11.8 %; MONO ABS # 1.41 K/uL (0.11-0.59); NEUT ABS # 8.22 K/uL (1.4-6.5); PLATELET COUNT 197 K/uL (130-400); RED CELL DISTRIBUTION WIDTH CV 12.7 % (11.5-14.5); RED CELL DISTRIBUTION WIDTH SD 42.5 fL (36.4-46.3)
[2017-09-27 15:42] LABS: ALBUMIN 3.6 gm/dl (3.4-5.0); CALCIUM 10.1 mg/dl (8.5-10.1); CREATININE 0.82 mg/dl (0.60-1.20); POTASSIUM 3.9 mmol/L (3.5-5.1)
--- NOTE | 2017-09-27 15:42 | DIAGNOSTIC IMAGING REPORT ---
SINGLE VIEW CHEST CLINICAL HISTORY: Atypical chest pain. FINDINGS: An AP, portable, upright chest radiograph is compared to study dated 08/14/2017. The examination is degraded by portable technique and apical lordotic positioning. The heart is top normal for projection and there is atherosclerotic calcification of the thoracic aorta. Advanced emphysema and chronic interstitial thickening are similar to previous. There is left basilar consolidation. Mild volume loss is also seen at the left lung base. The right lung appears clear. No large pleural effusion or pneumothorax is seen. The skeletal structures are osteopenic. The bony thorax is grossly intact. IMPRESSION: 1. Advanced emphysema. 2. There is mild volume loss and consolidation seen at the left lung base. Correlate clinically for evidence of pneumonia/aspiration pneumonitis. Radiographic follow-up to resolution is recommended. Electronically signed by: Jason Garvin M.D. 09/27/2017 3:40 PM Dictated Date/Time: 09/27/2017 3:38 PM
[2017-09-27 15:43] VITALS: PULSE 100; O2SAT 95
[2017-09-27] MEDS ORDERED: ACET-1256 PO (16:52)
[2017-09-27] MEDS ORDERED: CHOL200010 (16:53)
[2017-09-27] MEDS ORDERED: AZITTAB PO (17:49)
[2017-09-27] MEDS ORDERED: PRED50TA PO (17:49)
[2017-09-27] MEDS ORDERED: AZITHROMYCIN 250 MG TAB PO ONE (18:00)
[2017-09-27 18:21] VITALS: BP 127/96; PULSE 106; O2SAT 90
[2017-09-27] MEDS ORDERED: CITA40TA12 PO (22:23)
== END 2017-09-27 18:24 | disposition home or self-care (01) ==
LOC: C.EDB 14:41 → EDBD 14:41 → C.EDB 18:24
DX: J44.9 Chronic obstructive pulmonary disease, unspecified (principal); J40 Bronchitis, not specified as acute or chronic; R07.9 Chest pain, unspecified; Z83.3 Family history of diabetes mellitus; F17.200 Nicotine dependence, unspecified, uncomplicated; Z99.81 Dependence on supplemental oxygen